=== PATIENT | female | born 1965 | race Caucasian/White ===

== ENCOUNTER 2018-04-15 05:51 | Day surgery (SDC) | payer BC ==
[~2018-04-15 05:51] MED LIST: Buffered Lidocaine 0.9% SYRIN* 5 ML/SYR SYRINGE INTRADERM ONE
[2018-04-15] MEDS ORDERED: ceFOXitin 2 GM IVPREMIX* 2 GM/50 ML BAG ONE (06:19)
[2018-04-15] MEDS ORDERED: Lidocaine 2% PF * 5 ML VIAL ONE (06:54)
[2018-04-15] MEDS ORDERED: Propofol* 10 MG/ML 20 ML BTL ONE (06:54)
[2018-04-15] MEDS ORDERED: fentaNYL* 50 MCG/ML 2 ML VIAL (100 MCG VIAL) ONE ×2 (06:54→08:41)
[2018-04-15] MEDS ORDERED: Midazolam* 1 MG/ML 2 ML VIAL (2 MG) ONE (06:54)
[2018-04-15] MEDS ORDERED: Lidocaine 1% INJ* 10 MG/ML 30 ML SDV ONE (06:57)
[2018-04-15] MEDS ORDERED: Bupivacaine 0.5% PF 10 ML VIAL INJ ONE (07:07)
[2018-04-15] MEDS ORDERED: Lidocaine 1%* 5 ML VIAL ONE (07:17)
[2018-04-15] MEDS ORDERED: Lidocain 1% EPI 1:100,000 * 30 ML MDV ONE (07:29)
[2018-04-15] MEDS ORDERED: Ondansetron INJ* 2 MG/ML VIAL ONE (07:47)
[2018-04-15] MEDS ORDERED: Metoclopramide IV* 5 MG/ML 2 ML VIAL ONE (07:47)
[2018-04-15] MEDS ORDERED: Dexamethasone IV* 4 MG/ML 1 ML (4 MG) ONE (07:47)
[2018-04-15] MEDS ORDERED: Ketorolac INJ* 30 MG/ML 1 ML VIAL ONE (07:47)
[2018-04-15] MEDS ORDERED: Naloxone* 0.4 MG/ML 1 ML VIAL IV PRN (08:03)
[2018-04-15] MEDS ORDERED: fentaNYL* 50 MCG/ML 2 ML VIAL (100 MCG VIAL) IV PRN (08:03)
[2018-04-15] MEDS ORDERED: oxyCODONE TAB* 5 MG TAB PO PRN (08:03)
[2018-04-15] MEDS ORDERED: DiMENhydriNATE IV* 50 MG/ML VIAL IV PUSH PRN (08:03)
[2018-04-15] MEDS ORDERED: Acetaminophen IV 1GM/100ML * 100 ML ONE (08:22)
[2018-04-15 08:28] VITALS: BP 131/70
[2018-04-15] MEDS ORDERED: oxyCODONE TAB* 5 MG TAB ONE (08:41)
--- NOTE | 2018-04-15 11:00 | OP ---
CONTINUATION ADDENDUM NOW INCLUDED ON THIS REPORT DATE OF OPERATION: 04/15/18 - [facility] DATE OF : 67 SURGEON: Sofiya Palacios MD. MID LEVEL CLINICIAN: None. PRE-OP DIAGNOSIS: Menometrorrhagia, submucosal fibroid. POST-OP DIAGNOSIS: Menometrorrhagia, submucosal fibroid. OPERATIVE PROCEDURE: 1. Dilation and curettage. 2. Hysteroscopic resection with MyoSure of submucosal fibroid. ESTIMATED BLOOD LOSS: Minimal. URINE OUTPUT: 100 cc of clear yellow urine. FLUIDS: 1000 cc of crystalloid. Deficit 340 cc. FINDINGS: Findings revealed a large, approximately 3.5 cm, submucosal fibroid extending the entire anterior surface of the uterine cavity occupying the uterine cavity itself obliterating the left tubular ostia, right tubular ostia clearly seen. Post MyoSure resection, uterine cavity within normal contour and normal appearance and both ostia visualized. COMPLICATIONS: None apparent. DISPOSITION: Stable to recovery room. DESCRIPTION OF PROCEDURE: The patient was placed in dorsal lithotomy position. After undergoing general anesthesia, legs were placed in [place] Kenny stirrups. The perineum and vagina were prepped in a sterile standard fashion. CONTINUATION ADDENDUM: A sterile speculum was inserted after drainage of clear yellow urine using self- cath for 100 cc. Cervix was visualized and a paracervical block with 1% lidocaine with epi was carried out for a total of 10 cc. A single-tooth tenaculum was placed in the anterior lip and a dilation was then carried out with Hegar dilators to #8. The MyoSure resectoscope was then inserted with clear visualization of large 3.5- to 4-cm submucosal fibroid that extended the entire anterior surface of the uterine cavity. An XL was then used to completely resect the submucosal fibroid allowing opening up of the uterine cavitiy so that the uterine cavity had evangelical of a normal contour. Both tubal ostia were now able to be visualized with the hysteroscope. A sharp curettage was then performed and single-tooth tenaculum and sterile speculum was removed. All sponge, instrument, and blade counts were correct throughout the case. The patient tolerated the procedure well and went to the recovery room in stable condition. [id number]/CPS #: [id number]/CPS #: [id number] [facility]
--- NOTE | 2018-04-15 23:13 | OP ---
OPERATIVE REPORT: ADDENDUM: A sterile speculum was inserted after drainage of clear yellow urine using self-cath for 100 cc. Cervix was visualized and a paracervical block with 1% lidocaine with epi was carried out for a total of 10 cc. A single- tooth tenaculum was placed in the anterior lip and a dilation was then carried out with Hegar dilators to #8. The MyoSure resectoscope was then inserted with clear visualization of this large 3.5- to 4-cm submucosal fibroid that extended the entire anterior surface of the uterine cavity. An XL was then used to completely resect the submucosal fibroid and its entity allowing opening up of the uterine cavities, so that the uterine cavity had zoroastrianism of a normal contour. Both tubal ostia were now able to be visualized with the hysteroscope. A sharp curettage was then performed and single-tooth tenaculum and sterile speculum was removed. All sponge, instrument, and blade counts were correct throughout the case. The patient tolerated the procedure well and went to the recovery room in stable condition. [id number]/[facility] #: [id number] [place]
== END 2018-04-15 09:43 | disposition home or self-care (01) ==
LOC: OR 05:51
PROVIDERS: ATTEND Obstetrics & Gynecology
DX: N92.1 Excessive and frequent menstruation with irregular cycle (principal); D25.0 Submucous leiomyoma of uterus; D64.9 Anemia, unspecified
CPT/HCPCS: 36415; 81025; 86850; 86900; 86901; 88305; A9270-GY; J0694; J1100; J1885; J2250; J2405; J2704; J2765; J3010

== ENCOUNTER 2018-10-27 12:01 | Observation (INO) | payer BC ==
[~2018-10-27 12:01] MED LIST changes: -Buffered Lidocaine 0.9% SYRIN* 5 ML/SYR SYRINGE INTRADERM ONE; +Clindamycin 900 MG IVPREMIX(* 900 MG/50 ML SDV IV ONE
[2018-10-27 12:40] LABS: ABS Lymphocytes 1.3 10^3/ul (1.0-4.8); ABS Monocytes 0.3 10^3/ul (0-0.8); ABS Neutrophils 2.9 10^3/ul (1.5-7.7); Eosinophil % 0.9 %; Hematocrit 27 % (35-47); Hemoglobin 8.8 g/dL (12.0-16.0); Lymphocyte % 28.7 %; Mean Corpuscular HGB Conc 32 g/dL (31-36); Mean Corpuscular Hemoglobin 27 pg (27-31); Mean Corpuscular Volume 84 fL (80-97); Mean Platelet Volume 8.5 fL (7.4-10.4); Platelet Count 292 10^3/uL (150-450); Red Blood Count 3.28 10^6 /uL (3.70-4.87); Red Cell Distribution Width 15 % (10-15); White Blood Count 4.7 10^3/uL (3.5-10.8)
[2018-10-27] MEDS ORDERED: Clindamycin 900 MG/D5W BAG(*) 900 MG/50 ML BAG IVPB ONE (13:00)
[2018-10-27] MEDS ORDERED: Scopolamine 1.5 mg* PATCH ONE (13:05)
[2018-10-27] MEDS ORDERED: LORazepam TAB(*) 1 MG ONE (13:06)
[2018-10-27] MEDS ORDERED: Ondansetron INJ* 2 MG/ML VIAL ONE ×2 (13:06→17:34)
[2018-10-27] MEDS ORDERED: Naproxen TAB* 250 MG ONE (13:06)
[2018-10-27] MEDS ORDERED: oxyCODONE SR TAB(*) 10 MG TAB.SR ONE (13:06)
[2018-10-27] MEDS ORDERED: Lidocaine 1% INJ* 10 MG/ML 30 ML SDV ONE (13:31)
[2018-10-27] MEDS ORDERED: Iohexol 350 (CONTRAST) 200 ML MDV IV ONE (13:31)
[2018-10-27] MEDS ORDERED: Heparin(*) 1000 UNIT/ML 10 ML VIAL CATH LAB IV ONE (13:57)
[2018-10-27] MEDS ORDERED: Midazolam* 1 MG/ML 5 ML VIAL (5 MG) ONE (13:57)
[2018-10-27] MEDS ORDERED: nitroGLYCERIN DRIP* 25,000 MCG/250 ML BTL ONE (13:57)
[2018-10-27] MEDS ORDERED: fentaNYL* 50 MCG/ML 2 ML VIAL (100 MCG VIAL) ONE ×4 (13:57→16:06)
[2018-10-27] MEDS ORDERED: Ketorolac INJ* 30 MG/ML 1 ML VIAL ONE (13:57)
[2018-10-27] MEDS ORDERED: VERAPAMIL 2.5 MG/ML 2 ML VIAL ** 5 mg/2 ml ONE ×2 (13:57→14:11)
[2018-10-27] MEDS ORDERED: diPHENhydraMINE IV* 50 MG/ML 1 ml VIAL (BENADRYL) ONE (15:16)
[2018-10-27] MEDS ORDERED: HYDROmorphone INJ1* 1 MG/ML SYRINGE ONE (16:10)
[2018-10-27] MEDS ORDERED: HYDROmorphone PCA* 20 MG/20 ML PCA.SYRING ONE (16:39)
[2018-10-27] MEDS ORDERED: Acetaminophen TAB* 325 MG PO PRN (17:36)
[2018-10-27] MEDS ORDERED: Ondansetron INJ* 2 MG/ML VIAL IV ONE (17:39)
--- NOTE | 2018-10-27 18:50 | HP ---
HOSPITAL MEDICINE HISTORY AND PHYSICAL: DATE OF ADMISSION: 10/27/18 PROVIDER: Loli Adams NP PRIMARY CARE PROVIDER: Dr. Mendoza. ATTENDING PHYSICIAN WHILE IN THE HOSPITAL: Dr. Laila Roth * (dictated by Loli Adams NP). CHIEF COMPLAINT: Vaginal bleeding. HISTORY OF PRESENT ILLNESS: Ms. Gerard is a 53-year-old female with a past medical history significant for basal cell carcinoma of the skin and heavy menstruation, history of spinal stenosis, who presented to [facility] [place] an elective uterine fibroid embolization with Dr. Joyce. In brief, the patient had ongoing heavy vaginal bleeding and opted to proceed with uterine fibroid embolization with Dr. Joyce. Preoperatively, the patient denies any fever, chills, unintended weight loss. Denies any chest pain or edema, cough, hemoptysis or shortness of breath. No nausea, vomiting, diarrhea, or abdominal pain. She denies any gross hematuria, dysuria, focal weakness, or sensory loss. Denies any visual complaints, dysphagia, arthralgias, myalgias, rashes, lesions, or open sores. Denies any psychosis or anxiety. The patient does report that she recently on Thursday had basal cell carcinoma removed from her left upper arm. She reports her last menstrual cycle was 1 week ago this past Thursday. We were asked to see and evaluate the patient for admission observation overnight, status post uterine fibroid embolization. PAST MEDICAL HISTORY: Significant for: 1. Basal cell carcinoma of the left shoulder. 2. Menorrhagia. 3. Spinal stenosis. PAST SURGICAL HISTORY: She has had vein stripping, D and C. HOME MEDICATIONS: 1. Multivitamin 1 tab p.o. daily. 2. Advil as needed. ALLERGIES: No known drug allergies. FAMILY HISTORY: No reported history of coronary artery disease or diabetes. Mother with breast cancer. SOCIAL HISTORY: Denies any tobacco. Does report occasional alcohol use. Denies any illicit drug use. She is a homemaker. She is . Surrogate decision maker in the event she is unable to make her own decisions is her . She is a full code. REVIEW OF SYSTEMS: An 11-point review of systems was completed. All pertinent positives were mentioned in the HPI. PHYSICAL EXAMINATION GENERAL: At this time, Ms. Gerard is drowsy, resting on the stretcher in PACU. She is alert to verbal. She is in no acute distress. VITAL SIGNS: 120/66, heart rate 59, respirations are 13, O2 saturation 99%, temperature 97.7. HEENT: Head is atraumatic, normocephalic. Eyes: EOMs are intact. Sclerae anicteric and not pale. Oral mucosa appears to be moist. NECK: Supple. LUNGS: Clear to auscultation bilaterally. No wheezes, rales, or rhonchi. CARDIAC: S1, S2. Regular rate and rhythm. No murmurs, rubs, or gallops. ABDOMEN: Soft and nontender. Bowel sounds are present x4. EXTREMITIES: She is able to move all 4 extremities. Radial pulse is +2 bilaterally. Pedal pulses are +2 bilaterally. NEUROLOGIC: She is drowsy, but alert and oriented. There are no gross focal deficits. SKIN: Intact. She does have a Band-Aid noted to her left shoulder. DIAGNOSTIC STUDIES/LAB DATA: WBCs were 4.7, RBCs 3.28, hemoglobin 8.8, hematocrit was 27. Beta hCG was less than 0.60. Sodium 140, potassium 4.0 on 10/26/18, chloride was 106, carbon dioxide was 28, anion gap was 6, BUN was 20, creatinine 0.67, glucose was 106. ASSESSMENT AND PLAN: Ms. Gerard is a 53-year-old female with a past medical history significant for basal cell carcinoma of the skin, spinal stenosis and heavy vaginal bleeding with uterine fibroids, who presented for an elective uterine fibroid embolization with Dr. Joyce. She will be admitted under observation for: 1. Status post uterine fibroid embolization. We will continue with orders per Dr. Joyce's recommendations postoperatively. She can have Zofran 4 mg q.6 hours as needed for nausea or vomiting. Continue IV fluids at 200 cc per hour. The patient is to remain on bedrest x1 hour per Dr. Joyce's recommendations and left wrist cath band to be released as per protocol. 2. FEN: She can have a regular diet. 3. Code status: She is a full code. 4. Deep venous thrombosis prophylaxis: I will encourage ambulation. She can have SCDs. TIME SPENT: Time spent on this admission was approximately 60 minutes, greater than half that time was spent at the bedside reviewing events leading thus far to her hospitalization, performing physical exam, and reviewing my plan of care. I have discussed this with my attending, Dr. Laila Roth; she is in agreement with my plan. LOLI ADAMS, FROILAN [id number]/[facility] #: [id number] [place]
[2018-10-27] MEDS ORDERED: Naloxone* 0.4 MG/ML 1 ML VIAL IV PUSH PRN (19:10)
[2018-10-27] MEDS ORDERED: NS 0.9% 1000 ML** 1,000 ML IV SCH (19:15)
--- NOTE | 2018-10-27 19:40 | PN ---
Progress Note - Progress Note Date of Service: 10/27/18 SOAP: Subjective: Patient currently denies significant pain, nausea or emesis. Patient has had ice chips without incident Denies SOB. Objective: Selected Entries 10/27/18 19:07 Temperature 98.1 F Temperature Temporal Artery Source Scan Pulse Rate 56 Respiratory 16 Rate Blood Pressure 115/58 (mmHg) O2 Sat by Pulse 98 Oximetry Oxygen Flow 2 Rate Sleepy, but arousable to voice. Oriented x 3 Left radial pulse is 2+ No swelling or tenderness over left radial arteriotomy Trace dried blood under small tegaderm Left hand is warm to touch Motor function of left hand grossly intact Sensation to light touch intact at radial, median and ulnar nerve distribution Minimal tenderness elicited with deep pelvic palpation Assessment: 53 YOF s/p Uterine Fibroid Arterial Embolization from left radial arteriotomy. Expected post embolization pain and nausea are currently well controlled. Plan: 1. Standard post UFE pain & nausea Interventional Radiology protocol. 2. Advance diet cautiously. 3. IVF can be reduced to NS 0.9% 125 mL/hr overnight. 4. Remove left wrist brace in AM. 5. No mobility restriction.
[2018-10-27] MEDS ORDERED: PROCHLORPERAZINE INJ 5 MG/ML 2 ML VIAL IV PRN (19:45)
[2018-10-27] MEDS ORDERED: HYDROmorphone PCA* 20 MG/20 ML PCA.SYRING PCA SCH (20:00)
[2018-10-27] MEDS: Ketorolac INJ* 15 MG/ML 1 ML VIAL IV PUSH SCH (22:27)
[2018-10-27] MEDS: Ondansetron INJ* 2 MG/ML VIAL IV SCH (22:30)
[2018-10-27] MEDS: NS 0.9% 1000 ML** 1,000 ML IV SCH (22:31)
[2018-10-28] MEDS: Ondansetron INJ* 2 MG/ML VIAL IV SCH ×2 (04:31→10:29)
[2018-10-28] MEDS: Ketorolac INJ* 15 MG/ML 1 ML VIAL IV PUSH SCH ×2 (04:34→10:29)
[2018-10-28] MEDS: NS 0.9% 1000 ML** 1,000 ML IV SCH (07:02)
[2018-10-28 09:57] LABS: BUN/Creatinine Ratio 30.4 (8-20); Calcium 8.6 mg/dL (8.6-10.3); EGFR African American 137.6 (>60); EGFR Non-African American 113.7 (>60); Potassium 3.8 mmol/L (3.5-5.0)
--- NOTE | 2018-10-28 10:15 | PN ---
Progress Note - Progress Note Date of Service: 10/28/18 SOAP: Subjective: Patient had episode of nausea overnight, but no emesis. Nausea controlled after a small breakfast of eggs, toast and juice. Cramping pain rated at 4/10, but "not too bad". + void. Ambulating independently. Objective: Selected Entries 10/28/18 07:10 Temperature 98.6 F Temperature Oral Source Pulse Rate 64 Respiratory 18 Rate Blood Pressure 129/62 (mmHg) Blood Pressure 84 Mean O2 Sat by Pulse 98 Oximetry Patient on Room No Air NAD, AAO x 3 Abdomen and pelvis are soft, minimally tender to palpation. 2+ pulse readily palpable at left radial artery Scant dried blood beneath tegaderm over arteriotomy Left hand warm to touch Left hand motor function intact, normal car coupler strength Sensation intact to light touch in distribution of left radial, median and ulnar nerves Assessment: 53 YOF POD #1 status post Uterine Fibroid Arterial Embolization from left radial arteriotomy. Pain and nausea are reasonably well controlled. Plan: 1. Transition IV medications to PO. 2. Patient to ambulate around the unit with assistance. 3. Outpatient medication regimen as follows: * Toradol 10 mg PO every 6 hours x 3 days. Dispense #15 with one refill. * AFTER Toradol patient advised to take EITHER Ibuprofen 400 mg PO every 6 hours OR Naprosyn 225 mg PO every 8 hours x 3 days. (DO NOT COMBINE TORADOL, IBUPROFEN AND/OR NAPROSYN). * [place] 5/325, take 1 or 2 tablets by mouth every 6 hours as needed for breakthrough pain x 5 days. Dispense #30. * Zofran 4 mg PO every 6 hours x 5 days. Dispense # 30 with one refill. * Scopolamine 1.5 mg transdermal patch. On 10/31/18 at 900AM remove current patch and apply new patch for 3 more days. * Drink one cup of laxative tea (E.g. Smooth Move) once daily for one week.
[2018-10-28] MEDS ORDERED: HYDROcodone/ACETAMIN 5-325 MG* 1 TAB PO PRN (10:22)
[2018-10-28] MEDS ORDERED: Ketorolac TAB * 10 MG TAB PO SCH (10:30)
[2018-10-28] MEDS ORDERED: Ondansetron TAB* 4 MG PO SCH (10:30)
[2018-10-28 11:12] VITALS: BP 121/52
[2018-10-28 11:22] LABS: ABS Lymphocytes 0.7 10^3/ul (1.0-4.8); ABS Monocytes 0.3 10^3/ul (0-0.8); ABS Neutrophils 5.2 10^3/ul (1.5-7.7); Eosinophil % 0.2 %; Hematocrit 24 % (35-47); Lymphocyte % 11.7 %; Mean Corpuscular HGB Conc 33 g/dL (31-36); Mean Corpuscular Hemoglobin 28 pg (27-31); Mean Corpuscular Volume 84 fL (80-97); Platelet Count 228 10^3/uL (150-450); Red Blood Count 2.87 10^6 /uL (3.70-4.87); Red Cell Distribution Width 15 % (10-15); White Blood Count 6.3 10^3/uL (3.5-10.8)
[2018-10-28] MEDS ORDERED: Multivitamins/Minerals TAB PO SCH (18:00)
--- NOTE | 2018-10-28 23:00 | DS ---
CC: Dr. Mendoza * DISCHARGE SUMMARY: DATE OF ADMISSION: 10/27/18 DATE OF DISCHARGE: 10/28/18 PRIMARY CARE PROVIDER: Dr. Mendoza. ATTENDING PHYSICIAN: Dr. Colvin * (dictated by Anselmo Morgan NP) PRIMARY DIAGNOSES: 1. Vaginal bleeding. 2. Status post uterine fibroid embolization. SECONDARY DIAGNOSES: 1. Basal cell carcinoma of the left shoulder. 2. Menorrhagia. 3. Spinal stenosis. CONSULTATIONS: . PROCEDURES WHILE IN THE HOSPITAL: Uterine fibroid embolization. DISCHARGE HOME MEDICATIONS: Continued home medications: Multivitamin 1 tab p.o. daily. Changed home medications: Please hold home Advil until not taking Toradol. New home medications: 1. Scopolamine 1.5 mg patch transdermally q.72 hours. 2. Zofran 4 mg p.o. q.6 hours. 3. Toradol 10 mg p.o. q.6 hours. 4. [place] 5/325 one to two tabs p.o. q.6 hours p.r.n., MDD 8. HISTORY OF PRESENT ILLNESS AND HOSPITAL COURSE: Mrs. Gerard is a 53-year-old female with a past medical history significant for basal cell carcinoma and heavy menstruation and spinal stenosis, who [place] [facility] for an elective uterine fibroid embolization with Dr. Joyce. Please see history and physical dictated by Loli Adams NP for complete summary of events leading up to this hospitalization, but in short, the patient underwent a uterine fibroid embolization without complication. The patient was admitted to the short-stay surgical unit where she recovered well. Today, the patient is walking without difficulty. The patient is taking p.o. without nausea or vomiting. The patient's pain is controlled with p.o. pain meds. The patient's vital signs are stable. The patient is stable for discharge home. REVIEW OF SYSTEMS: The patient reports intermittent lower abdominal cramping. Denies fever, chills, nausea, vomiting, chest pain, shortness of breath. A 14- point review of systems was completed and all others were negative. PHYSICAL EXAMINATION: Vital Signs: Temp 98.3, HR 60, RR 16, O2 saturation is 95% on room air, BP 121/52. General: Mrs. Gerard is a 53-year-old female who is lying in bed. Appears to be in no acute distress. Appears stated age. HEENT: EOMs intact. PERRLA. Oral mucosa is moist without lesion. Posterior pharynx is clear. Neck: Supple. No lymphadenopathy. Cardiac: S1, S2 present. No murmurs, rubs, or gallops. Regular rate and rhythm. Respiratory: Lung sounds are clear to auscultation. No wheezes, rhonchi, or rubs. Good aeration. Abdomen: Soft and nontender. Bowel sounds are normoactive. Extremities: No edema. No clubbing or cyanosis. Pedal pulses 2+ bilaterally. Extremities: No pain or deformities. Skin: Grossly intact. Neuro: Neuro exam is grossly intact. No focal deficits or weakness noted. LABORATORY DATA: WBC 6.3, hemoglobin 8.0, hematocrit 24, platelets 228. Sodium 139, potassium 3.8, chloride 111, carbon dioxide 21, BUN 17, creatinine 0.56. DISCHARGE PLAN AND FOLLOWUP: 1. Status post uterine fibroid embolization: The patient was provided with discharge instructions that include when to notify procedural physician or leader assembler, phone numbers, medication, activity, diet, menstrual periods of vaginal discharge or spotting, wrist puncture site, followup care. The patient was also provided with new medications as mentioned above for pain control and nausea control. The patient has followup scheduled with Dr. Joyce. 2. Anemia: As you see above, the patient is slightly anemic, which she reports is chronic for her given her heavy menstrual periods. She reports she follows with primary care regarding this. The patient reports that she has been on iron occasionally depending on her period flow. I have not started her on iron as I do not want to cause constipation. The patient agreed to follow up with her primary care for repeat CBC. 3. Basal cell carcinoma: The patient to follow up with her primary care. 4. Spinal stenosis: The patient to follow up with her primary care. The patient was educated on not starting any aspirin or NSAID products while on Toradol. The patient stated understanding. 5. Followup: As mentioned above, the patient will follow up with Dr. Joyce as scheduled. The patient is to follow up with her primary care in 1 to 2 weeks. 6. Education: The patient and were educated on signs and symptoms of new or worsening condition and when to return to the emergency department. Both stated understanding. This is a summarized report of a complex medical history and hospital stay. For further details, please see the entire medical record. TIME SPENT: Approximately 35 minutes was spent on this discharge, greater than half that time was spent [id number] with the patient and her discussing discharge plans and instructions. ANSELMO MORGAN, FROILAN [id number]/[facility] #: [id number] [place]
== END 2018-10-28 13:43 | disposition home or self-care (01) ==
LOC: CHICATH 12:01 → SSU 18:48
PROVIDERS: ADMIT Hospitalist; ATTEND Internal Medicine
DX: N92.4 Excessive bleeding in the premenopausal period (principal); C44.619 Basal cell carcinoma of skin of left upper limb, including shoulder; N92.0 Excessive and frequent menstruation with regular cycle; M48.00 Spinal stenosis, site unspecified
CPT/HCPCS: 36415; 37243; 76937; 80048; 84702; 85025; 96374; 96375; 96376; 99156; 99157; A9270-GY; C1769; C1884; C1887; G0378; J1170; J1200; J1644; J1885; J2250; J2405; J3010

== ENCOUNTER 2019-03-29 09:04 | Day surgery (SDC) | payer BC ==
[~2019-03-29 09:04] MED LIST changes: +Buffered Lidocaine 1% SYRIN* 1 ML/SYRINGE INTRADERM ONE; -Clindamycin 900 MG IVPREMIX(* 900 MG/50 ML SDV IV ONE; +Dexamethasone IV* 4 MG/ML 1 ML (4 MG) IV SLOW PU ONE; +Famotidine IV* 10 MG/ML 2 ML (20 mg) IV ONE; +Lactated Ringers 1000 ML Bag* 1,000 ML IV SCH
[2019-03-29] MEDS ORDERED: ceFAZolin 2 GM in NS PREMIX(*) 2 GM/100 ML BAG IVPB ONE (09:23)
[2019-03-29] MEDS ORDERED: Dexamethasone IV* 4 MG/ML 1 ML (4 MG) ONE (09:23)
[2019-03-29] MEDS ORDERED: Famotidine IV* 10 MG/ML 2 ML (20 mg) ONE (09:23)
[2019-03-29] MEDS ORDERED: Propofol* 10 MG/ML 20 ML BTL ONE ×2 (09:55→13:16)
[2019-03-29] MEDS ORDERED: Ondansetron INJ* 2 MG/ML VIAL ONE (09:55)
[2019-03-29] MEDS ORDERED: Midazolam* 1 MG/ML 5 ML VIAL (5 MG) ONE (09:56)
[2019-03-29] MEDS ORDERED: fentaNYL* 50 MCG/ML 2 ML VIAL (100 MCG VIAL) ONE ×2 (09:56→13:59)
[2019-03-29] MEDS ORDERED: Methylene Blue 0.5 %* 50 MG/10 ML AMP IV ONE (10:54)
[2019-03-29] MEDS ORDERED: Lidocaine 1% w EPI 1:100,000* MDV 20 ML VIAL ONE (10:54)
[2019-03-29] MEDS ORDERED: Bupivacaine 0.25% SDV PF* 10 ML VIAL INJ ONE (10:55)
[2019-03-29] MEDS ORDERED: Mineral Oil Sterile, TOPICAL* 25 ML BTL ONE ×2 (10:55)
[2019-03-29] MEDS ORDERED: Midazolam* 1 MG/ML 2 ML VIAL (2 MG) ONE ×2 (12:49→13:16)
[2019-03-29] MEDS ORDERED: Petrolatum 5 GM* 5 GM PACKET ONE (13:04)
[2019-03-29] MEDS ORDERED: DiMENhydriNATE IV* 50 MG/ML VIAL IV PUSH PRN (13:56)
[2019-03-29] MEDS ORDERED: Acetaminophen TAB* 325 MG PO PRN (13:56)
[2019-03-29] MEDS ORDERED: Naloxone* 0.4 MG/ML 1 ML VIAL IV PRN (13:56)
[2019-03-29] MEDS ORDERED: Ondansetron INJ* 2 MG/ML VIAL IV PRN (13:56)
[2019-03-29] MEDS ORDERED: oxyCODONE/Acetamin 5/325 MG* TAB PO PRN (13:56)
[2019-03-29] MEDS: fentaNYL* 50 MCG/ML 2 ML VIAL (100 MCG VIAL) IV PRN ×2 (14:01→14:13)
[2019-03-29 15:04] VITALS: BP 136/63
== END 2019-03-29 15:05 | disposition home or self-care (01) ==
LOC: OR 09:04
PROVIDERS: ATTEND Plastic Surgery
DX: C44.01 Basal cell carcinoma of skin of lip (principal); C44.219 Basal cell carcinoma of skin of left ear and external auricular canal; Z85.828 Personal history of other malignant neoplasm of skin
CPT/HCPCS: 88305; 88331; 88332; A9270-GY; J0690; J1100; J2250; J2405; J2704; J3010; J3490